=== PATIENT | female | born 1965 | race Caucasian/White ===

== ENCOUNTER → 2023-08-07 | Day surgery (SDC) | payer OTHER ==
[~2023-08-07] MED LIST: ALLERGY SHOT SC; CLARITIN-D 241 EACH PO; CRESTOR10 MG PO; FAMOTIDINE20 MG PO; FENTANYL CITRATE/PF 100MCG/2 ML INJ ONE; LIDOCAINE HCL 2% LOCAL INJ 5 ML SDV VIAL INJ ONE; LISINOPRIL10 MG PO; LUNESTA3 MG PO; METOCLOPRAMIDE HCL 10 MG/2ML VIAL ONE; MIDAZOLAM HCL 2 MG/2 ML VIAL ONE; PROPOFOL IV EMULSION 10 MG/ML 20 ML VIAL ONE; PROVENTIL HFA6.7 GM INH; VENLAFAXINE H37.5 M2 PO; VITAMIN D3 COM1 EACH PO
[2023-08-07] MEDS: LACTATED RINGER'S 1,000 ML ONE (13:44)
[2023-08-07 15:44] VITALS: TEMP 97
[2023-08-07 16:05] VITALS: BP 118/73; PULSE 86; RESP 18; O2SAT 99
== END | disposition home or self-care (01) ==
LOC: OR 12:15
PROVIDERS: ATTEND Internal Medicine Gastroenterology
DX: Z12.11 Encounter for screening for malignant neoplasm of colon (principal); D12.2 Benign neoplasm of ascending colon; D12.3 Benign neoplasm of transverse colon; D12.4 Benign neoplasm of descending colon; K29.70 Gastritis, unspecified, without bleeding; K21.9 Gastro-esophageal reflux disease without esophagitis; K57.30 Diverticulosis of large intestine without perforation or abscess without bleeding; K44.9 Diaphragmatic hernia without obstruction or gangrene; K59.00 Constipation, unspecified; I10 Essential (primary) hypertension; E78.5 Hyperlipidemia, unspecified; G47.00 Insomnia, unspecified; J45.909 Unspecified asthma, uncomplicated; L40.9 Psoriasis, unspecified; Z79.899 Other long term (current) drug therapy; Z80.0 Family history of malignant neoplasm of digestive organs
CPT/HCPCS: 43239; 45384; J2001; J2250; J2704; J2765; J3010; J7121